=== PATIENT | female | born 1995 | race Caucasian/White ===

== ENCOUNTER 2023-09-01 17:07 | Emergency (ER) | payer SELFPAY | END 2023-09-01 17:30 | disposition home or self-care (01) | LOC: CC.ED 17:07 | DX: R55 Syncope and collapse (principal); Z88.1 Allergy status to other antibiotic agents; Z79.82 Long term (current) use of aspirin; Z79.899 Other long term (current) drug therapy | CPT/HCPCS: 99283 ==

== ENCOUNTER 2025-04-04 03:08 | Emergency (ER) | payer SELFPAY ==
[2025-04-04] MEDS: Sodium Chloride 0.9% 1,000 ML IV ONE (04:12)
[2025-04-04 04:17] LABS: BASOPHILS ABSOLUTE AUTO 0.04 10^3/uL (0.00-0.50); BASOPHILS PERCENT AUTO 0.2 % (0-1); EOSINOPHILS ABSOLUTE AUTO 0.09 10^3/uL (0.00-1.50); EOSINOPHILS PERCENT AUTO 0.5 % (0-6); HEMATOCRIT 42.5 % (37.0-47.0); HEMOGLOBIN 14.7 g/dL (12.0-16.0); IMMATURE GRAN ABSOLUTE AUTO 0.04 10^3/uL (0.00-0.49); IMMATURE GRAN PERCENT AUTO 0.2 % (0.0-4.9); LYMPHOCYTES PERCENT AUTO 15.5 % (24-44); MEAN CORPUSCULAR HEMOGLOBIN 30.9 pg (27.0-32.0); MEAN CORPUSCULAR HGB CONC 34.6 g/dL (32.0-36.0); MEAN CORPUSCULAR VOLUME 89.5 fL (83.0-97.0); MONOCYTES ABSOLUTE AUTO 0.98 10^3/uL (0.00-1.50); MONOCYTES PERCENT AUTO 5.2 % (0-10); NEUTROPHILS PERCENT AUTO 78.4 % (41-71); PLATELET COUNT,PLT 152 10^3/uL (150-400); RED BLOOD CELL COUNT 4.75 x10^6/uL (4.00-5.50); WHITE BLOOD CELL COUNT,WBC 18.8 10^3/uL (4.0-11.0)
[2025-04-04 04:19] LABS: APPEARANCE,URINE CLEAR (CLEAR); BILIRUBIN,URINE NEGATIVE (NEGATIVE); COLOR,URINE YELLOW (YELLOW); GLUCOSE,URINE NEGATIVE (NEGATIVE); KETONES,URINE NEGATIVE (NEGATIVE); LEUKOCYTE ESTERASE,URINE NEGATIVE (NEGATIVE); NITRITE,URINE NEGATIVE (NEGATIVE); OCCULT BLOOD,URINE SMALL (NEGATIVE); PROTEIN,URINE NEGATIVE (NEGATIVE); UROBILINOGEN,URINE 0.2 EU/dL (0.2-1.0)
[2025-04-04 04:26] LABS: BACTERIA,URINE RARE /HPF (NOT SEEN); EPITHELIAL CELLS,URINE OCCASIONAL /HPF (NOT SEEN); MUCUS,URINE OCCASIONAL /HPF (NOT SEEN); WBC,URINE NOT SEEN /HPF (0-5)
[2025-04-04 04:27] LABS: AMPHETAMINES,URINE NEGATIVE (NEGATIVE); BARBITURATES,URINE NEGATIVE (NEGATIVE); BENZODIAZEPINE,URINE NEGATIVE (NEGATIVE); MDMA (ECSTASY), URINE NEGATIVE (NEGATIVE); METHADONE,URINE NEGATIVE (NEGATIVE); METHAMPHETAMINES,URINE NEGATIVE (NEGATIVE); OPIATES,URINE NEGATIVE (NEGATIVE); OXYCODONE,URINE NEGATIVE (NEGATIVE); PHENCYCLIDINE,URINE NEGATIVE (NEGATIVE); TCA,URINE NEGATIVE (NEGATIVE)
[2025-04-04 04:38] LABS: ALANINE AMINOTRANSFERASE,ALT 61 U/L (12-78); ALBUMIN 3.8 g/dL (3.4-5.0); ALKALINE PHOSPHATASE 79 U/L (46-116); ASPARTATE AMNIOTRANSFERASE,AST 46 U/L (15-37); BILIRUBIN TOTAL 0.3 mg/dL (0.0-1.0); BLOOD UREA NITROGEN,BUN 6 mg/dL (7-18); C-REACTIVE PROTEIN 0.58 mg/dL (<=0.50); CALCIUM 8.9 mg/dL (8.4-10.1); CARBON DIOXIDE,CO2 26 mmol/L (21-32); CHLORIDE,CL 100 mEq/L (98-106); CREATININE 0.6 mg/dL (0.6-1.0); EST CRCL DRUG DOSING (CG) 127.18 mL/min; ETHANOL BLOOD MEDICAL 146 mg/dL (0-3); GLUCOSE RANDOM 101 mg/dL (75-99); PROTEIN TOTAL,TP 7.4 g/dL (6.4-8.2); SODIUM,NA 139 mEq/L (136-145)
[2025-04-04 04:39] LABS: POTASSIUM,K 2.4 mEq/L (3.5-5.0)
[2025-04-04 04:40] LABS: ESTIMATED GFR 123 mL/min (>=60)
[2025-04-04 04:42] LABS: ACETAMINOPHEN < 2 ug/mL (10-30)
[2025-04-04] MEDS: Potassium Chloride Riders 20 MEQ in Premix Bag 1 BAG IV SCH (05:00)
[2025-04-04] MEDS: Magnesium Oxide 400 MG Tab PO ONE (05:39)
[2025-04-04] MEDS ORDERED: Sodium Chloride 0.9% 1,000 ML IV ONE (05:42)
[2025-04-04] MEDS: Sodium Chloride 0.9% 1,000 ML IV SCH (07:45)
[2025-04-04] MEDS: Sodium Chloride 0.9% 1,000 ML ONE (11:11)
[2025-04-04] MEDS: Potassium Chloride 20 MEQ Tab.ER PO ONE (11:14)
== END 2025-04-04 11:30 | disposition home or self-care (01) ==
LOC: CC.ED 03:08
DX: F10.920 Alcohol use, unspecified with intoxication, uncomplicated (principal); E87.6 Hypokalemia; I10 Essential (primary) hypertension; E78.00 Pure hypercholesterolemia, unspecified; K21.9 Gastro-esophageal reflux disease without esophagitis; F17.200 Nicotine dependence, unspecified, uncomplicated; Z88.1 Allergy status to other antibiotic agents; Z91.013 Allergy to seafood; Z91.010 Allergy to peanuts; Z79.82 Long term (current) use of aspirin; Z79.890 Hormone replacement therapy; Z79.899 Other long term (current) drug therapy; Y90.6 Blood alcohol level of 120-199 mg/100 ml
CPT/HCPCS: 36415; 80053; 80143; 80179; 80305-QW; 80307; 81001; 81025; 83735; 85025; 86140; 96361; 96365; 96366; 99284; 99284-25; A9270-GY; J3480; J7030